=== PATIENT | male | born 1980 ===

== ENCOUNTER 2020-12-09 12:47 | Inpatient (IN) | payer OTHER ==
[2020-12-09] MEDS ORDERED: SODIUM CHLORIDE 0.9% 1000 ML IV SOLN IV ONE ×2 (14:32→22:15)
[2020-12-09] MEDS ORDERED: CLINDAMYCIN 600 MG/50 mL 600 MG/50 ML BAG IV ONE ×2 (14:32→22:15)
[2020-12-09] MEDS ORDERED: ACETAMINOPHEN 500 MG TAB PO ONE ×2 (14:34→22:10)
--- NOTE | 2020-12-09 14:35 | Emergency Department Report ---
Blank Doc - Documentation Documentation: 40-year-old male that presents with right knee pain, swelling and unable to do range of motion. Patient was sent by urgent care for possible septic joint. Patient is febrile with hypotension. Code sepsis initiated. 1- This is a initial triage assessment/medical screening only. Full assessment and work-up will be completed once the patient is in proper hospital gown, ED bed and in a private room setting. This initial assessment/diagnostic orders/clinical plan/ treatment(s) is/are subject to change based on pt's health status, clinical progression and re-assessment by fellow clinical providers in the ED. Further treatment and workup at subsequent clinical providers d iscretion. Patient/guardians urged not to elope from ED as their condition may be serious if not clinically assessed and managed. 2-sepsis protocol initiated 3-supervisor in charge notified of patient to be brought back [facility].
[2020-12-09 14:59] LABS: Basophils # (Auto) 0.1 K/mm3 (0.0-0.1); Basophils % (Auto) 0.5 % (0.0-1.8); Eosinophils # (Auto) 0.1 K/mm3 (0.0-0.4); Eosinophils % (Auto) 0.4 % (0.0-4.3); Hematocrit 44.8 % (35.5-45.6); Hemoglobin 15.7 gm/dl (11.8-15.2); Lymphocytes # (Auto) 1.9 K/mm3 (1.2-5.4); Lymphocytes % (Auto) 12.2 % (13.4-35.0); Mean Corpuscular HGB Conc 35 % (32-34); Mean Corpuscular Volume 91 fl (84-94); Monocytes # (Auto) 1.1 K/mm3 (0.0-0.8); Monocytes % (Auto) 7.3 % (0.0-7.3); Platelet Count 275 K/mm3 (140-440); Red Blood Count 4.93 M/mm3 (3.65-5.03); Red Cell Distribution Width 13.5 % (13.2-15.2)
--- NOTE | 2020-12-09 15:19 | XRay Report ---
CHEST 1 VIEW 12/09/2020 2:09 PM INDICATION / CLINICAL INFORMATION: sepsis. COMPARISON: None available. FINDINGS: SUPPORT DEVICES: None. HEART / MEDIASTINUM: No significant abnormality. LUNGS / PLEURA: No significant pulmonary or pleural abnormality. No pneumothorax. ADDITIONAL FINDINGS: No significant additional findings. IMPRESSION: 1. No acute findings. Signer Name: Hayden Johnston MD Signed: 12/09/2020 3:14 PM Workstation Name: [id number]
--- NOTE | 2020-12-09 15:19 | XRay Report ---
Right knee 3 views INDICATION: Knee pain and swelling FINDINGS: There is patellofemoral degenerative change. No acute fracture dislocation. Small joint eff usion. Signer Name: Hayden Johnston MD Signed: 12/09/2020 3:15 PM Workstation Name: [id number]
[2020-12-09 15:20] LABS: Alanine Aminotransferase 33 units/L (7-56); Albumin 4.3 g/dL (3.9-5); BUN/Creatinine Ratio 18; Blood Urea Nitrogen 16 mg/dL (9-20); Calcium 9.4 mg/dL (8.4-10.2); Hemolysis Index 7
[2020-12-09] MEDS ORDERED: CEFEPIME/NS 2 GM/100 ML 2 GM/100 ML BAG IV ONE (22:13)
[2020-12-09] MEDS ORDERED: VANCOMYCIN/NS 1 GM/250 ML 1 GM/250 ML BAG IV ONE (22:13)
--- NOTE | 2020-12-09 22:19 | Emergency Department Report ---
HPI - General Chief Complaint: Extremity Problem,Nontraumatic Time Seen by Provider: 12/09/20 14:32 - HPI HPI: Room 5 The patient is a 40-year-old male present with a chief complaint of right lower extremity pain. The patient states approximate 4 days ago there was a pimple on his right solis that he squeezed and popped. Since then the patient has de veloped pain swelling and redness of the right knee. Patient has pain so severe limits his ability to ambulate without crutches. Patient is febrile in the ED. Patient gives his pain a score of 10/10 ED Past Medical Hx - Past Medical History Previous Medical History?: No - Surgical History Past Surgical History?: No - Family History Family history: no significant - Social History Smoking Status: Former Smoker (None x3 years) Substance Use Type: None (Denies illicit drug use), Alcohol (Occasional) ED Review of Systems ROS: Stated complaint: RT LEG PAIN Other details as noted in HPI Constitutional: fever Eyes: denies: eye pain ENT: denies: throat pain Respiratory: no symptoms reported Cardiovascular: denies: chest pain Endocrine: no symptoms reported Gastrointestinal: denies: abdominal pain Genitourinary: denies: dysuria Skin: change in color Neurological: denies: headache Physical Exam - Physical Exam Vital Signs: Vital Signs 12/09/20 14:27 Temperature 100.1 F H Pulse Rate 83 Respiratory 22 Rate Blood Pressure 96/67 O2 Sat by Pulse 97 Oximetry Physical Exam: GENERAL: The patient is well-developed well-nourished male lying on stretcher not appearing to be in acute distress. [] HEENT: Normocephalic. Atraumatic. Extraocular motions are intact. Patient has moist mucous membranes. NECK: Supple. Trachea midline CHEST/LUNGS: Clear to auscultation. There is no respiratory distress noted. HEART/CARDIOVASCULAR: Regular. There is no tachycardia. There is no gallop rub or murmur. ABDOMEN: Abdomen is soft, nontender. Patient has normal bowel sounds. There is no abdominal distention. SKIN: There is circumferential erythema to the right lower extremity encomp assing the right knee and right upper solis and calf. There is a nodule in the pretibial region that is likely the portal of infection NEURO: The patient is awake, alert, and oriented. The patient is cooperative. The patient has no focal neurologic deficits. The patient has normal speech. GCS 15 MUSCULOSKELETAL: There is tenderness to palpation of the proximal right calf and distal right thigh ED Course Vital Signs 12/09/20 14:27 Temperature 100.1 F H Pulse Rate 83 Respiratory 22 Rate Blood Pressure 96/67 O2 Sat by Pulse 97 Oximetry - Consultations Consultation #1: 12/09/20 22:24 Ortho paged ED Medical Decision Making - Lab Data Result diagrams: 12/09/20 14:44 12/09/20 14:44 Laboratory Tests 12/09/20 12/09/20 12/09/20 14:44 14:44 14:44 WBC 15.5 H RBC 4.93 Hgb 15.7 H Hct 44.8 MCV 91 MCH 32 MCHC 35 H RDW 13.5 Plt Count 275 Lymph % (Auto) 12.2 L [place] % (Auto) 7.3 Eos % (Auto) 0.4 Baso % (Auto) 0.5 Lymph # (Auto) 1.9 [place] # (Auto) 1.1 H Eos # (Auto) 0.1 Baso # (Auto) 0.1 Seg Neutrophils % 79.6 H Seg Neutrophils # 12.3 H Sodium 135 L Potassium 4.0 Chloride 98.6 Carbon Dioxide 24 Anion Gap 16 BUN 16 Creatinine 0.9 Estimated GFR > 60 BUN/Creatinine Ratio 18 Glucose 106 H Lactic Acid 1.10 Calcium 9.4 Total Bilirubin 0.80 AST 24 ALT 33 Alkaline Phosphatase 78 Total Protein 7.8 Albumin 4.3 Albumin/Globulin Ratio 1.2 12/09/20 17:59 WBC RBC Hgb Hct MCV MCH MCHC RDW Plt Count Lymph % (Auto) [place] % (Auto) Eos % (Auto) Baso % (Auto) Lymph # (Auto) [place] # (Auto) Eos # (Auto) Baso # (Auto) Seg Neutrophils % Seg Neutrophils # Sodium Potassium Chloride Carbon Dioxide Anion Gap BUN Creatinine Estimated GFR BUN/Creatinine Ratio Glucose Lactic Acid 1.10 Calcium Total Bilirubin AST ALT Alkaline Phosphatase Total Protein Albumin Albumin/Globulin Ratio - Differential Diagnosis Cellulitis, sepsis Critical care attestation.: If time is entered above; I have spent that time in minutes in the direct care of this critically ill patient, excluding procedure time. ED Disposition Clinical Impression: Cellulitis of right lower extremity, SIRS (systemic inflammatory response syndrome) Disposition: OP ADMIT IP TO THIS HOSP Is pt being admited?: Yes Does the pt Need Aspirin: No Condition: Fair Time of Disposition: 22:20 (Hospitalist paged (Dr. Welsh))
[2020-12-09] MEDS ORDERED: HYDROmorphone 1 MG/1 ML INJ IV PRN (22:33)
[2020-12-09] MEDS ORDERED: oxyCODONE /ACETAMINOPHEN 5-325MG TAB PO PRN (22:33)
[2020-12-09] MEDS ORDERED: ACETAMINOPHEN 325 MG TAB PO PRN (22:33)
[2020-12-09] MEDS ORDERED: ALBUTEROL 2.5 MG/3 ML NEBU IH PRN (22:33)
[2020-12-09] MEDS ORDERED: ONDANSETRON 4 MG/2 ML INJ IV PRN (22:33)
[2020-12-09] MEDS ORDERED: HYDROmorphone 1 MG/1 ML INJ IV ONE (22:34)
[2020-12-09] MEDS ORDERED: ONDANSETRON 4 MG/2 ML INJ IV ONE (22:34)
--- NOTE | 2020-12-09 22:41 | History and Physical Report ---
History of Present Illness Date of examination: 12/09/20 Date of admission: 12/09/20 Chief complaint: Right lower extremity pain cellulitis History of present illness: 40-year-old male with no significant past medical history was brought to the emergency room because of right lower extremity cellulitis and pain. As per the patient, there was a pimple on his right solis that he squeezed and popped 4 days ago. Since then the patient has developed pain 10/10, swelling and redness of the right knee. Patient has pain so severe limits his ability to ambulate without crutches. Patient is febrile in the ED. X-ray of the knee showed there is patellofemoral degenerative change. No acute fracture dislocation. Small joint effusion. Patient WBC is 15.5 and lactic acid 1.10 Medications and Allergies Allergies Allergy/AdvReac Type Severity Reaction Status Date / Time No Known Allergies Allergy Verified 12/09/20 22:05 Active Meds: Active Medications Acetaminophen (Acetaminophen 325 Mg Tab) 650 mg PO Q4H PRN PRN Reason: Pain MILD(1-3)/Fever >100.5/CHRISTENSEN Cefepime HCl (Cefepime/Ns 2 Gm/100 Ml) 2 gm in 100 mls @ 200 mls/hr IV ONCE ONE; Protocol Stop: 12/09/20 22:42 Vancomycin HCl (Vancomycin/Ns 1 Gm/250 Ml) 1 gm in 250 mls @ 167.007 mls/hr IV ONCE ONE; Protocol Stop: 12/09/20 23:42 Ondansetron HCl (Ondansetron 4 Mg/2 Ml Inj) 4 mg IV Q8H PRN PRN Reason: Nausea And Vomiting Sodium Chloride (Sodium Chloride 0.9% 10 Ml Flush Syringe) 10 ml IV BID JENNIFER Sodium Chloride (Sodium Chloride 0.9% 10 Ml Flush Syringe) 10 ml IV PRN PRN PRN Reason: LINE FLUSH Review of Systems Constitutional: fever Musculoskeletal: redness of joints, other (Right lower extremity cellulitis and pain, swelling) Exam - Constitutional Vitals: Temp Pulse Resp BP Pulse Ox 100.1 F H 83 22 96/67 97 12/09/20 14:27 12/09/20 14:27 12/09/20 14:27 12/09/20 14:27 12/09/20 14:27 General appearance: Present: no acute distress, well-nourished - EENT Eyes: Present: PERRL ENT: hearing intact, clear oral mucosa - Neck Neck: Present: supple, normal ROM - Respiratory Respiratory effort: normal Respiratory: bilateral: CTA - Cardiovascular Heart Sounds: Present: S1 & S2. Absent: rub, click - Extremities Extremities: pulses symmetrical, No edema, abnormal Extremity abnormal: erythema, other (Right lower extremity cellulitis and swelling) Peripheral Pulses: within normal limits - Abdominal General gastrointestinal: Present: soft, non-tender, non-distended, normal bowel sounds Male genitourinary: Present: normal - Integumentary Integumentary: Present: clear, warm, dry - Musculoskeletal Musculoskeletal: gait normal, strength equal bilaterally - Psychiatric Psychiatric: appropriate mood/affect, intact judgment & insight - Neurologic Neurologic: CNII-XII intact, moves all extremities Results - Labs CBC & Chem 7: 12/09/20 14:44 12/09/20 14:44 Labs: Laboratory Last Values WBC 15.5 K/mm3 (4.5-11.0) H 12/09/20 14:44 RBC 4.93 M/mm3 (3.65-5.03) 12/09/20 14:44 Hgb 15.7 gm/dl (11.8-15.2) H 12/09/20 14:44 Hct 44.8 % (35.5-45.6) 12/09/20 14:44 MCV 91 fl (84-94) 12/09/20 14:44 MCH 32 pg (28-32) 12/09/20 14:44 MCHC 35 % (32-34) H 12/09/20 14:44 RDW 13.5 % (13.2-15.2) 12/09/20 14:44 Plt Count 275 K/mm3 (140-440) 12/09/20 14:44 Lymph % (Auto) 12.2 % (13.4-35.0) L 12/09/20 14:44 [place] % (Auto) 7.3 % (0.0-7.3) 12/09/20 14:44 Eos % (Auto) 0.4 % (0.0-4.3) 12/09/20 14:44 Baso % (Auto) 0.5 % (0.0-1.8) 12/09/20 14:44 Lymph # (Auto) 1.9 K/mm3 (1.2-5.4) 12/09/20 14:44 [place] # (Auto) 1.1 K/mm3 (0.0-0.8) H 12/09/20 14:44 Eos # (Auto) 0.1 K/mm3 (0.0-0.4) 12/09/20 14:44 Baso # (Auto) 0.1 K/mm3 (0.0-0.1) 12/09/20 14:44 Seg Neutrophils % 79.6 % (40.0-70.0) H 12/09/20 14:44 Seg Neutrophils # 12.3 K/mm3 (1.8-7.7) H 12/09/20 14:44 Sodium 135 mmol/L (137-145) L 12/09/20 14:44 Potassium 4.0 mmol/L (3.6-5.0) 12/09/20 14:44 Chloride 98.6 mmol/L (98-107) 12/09/20 14:44 Carbon Dioxide 24 mmol/L (22-30) 12/09/20 14:44 Anion Gap 16 mmol/L 12/09/20 14:44 BUN 16 mg/dL (9-20) 12/09/20 14:44 Creatinine 0.9 mg/dL (0.8-1.3) 12/09/20 14:44 Estimated GFR > 60 ml/min 12/09/20 14:44 BUN/Creatinine Ratio 18 % 12/09/20 14:44 Glucose 106 mg/dL (75-100) H 12/09/20 14:44 Lactic Acid 1.10 mmol/L (0.7-2.0) 12/09/20 17:59 Calcium 9.4 mg/dL (8.4-10.2) 12/09/20 14:44 Total Bilirubin 0.80 mg/dL (0.1-1.2) 12/09/20 14:44 AST 24 units/L (5-40) 12/09/20 14:44 ALT 33 units/L (7-56) 12/09/20 14:44 Alkaline Phosphatase 78 units/L (35-129) 12/09/20 14:44 Total Protein 7.8 g/dL (6.3-8.2) 12/09/20 14:44 Albumin 4.3 g/dL (3.9-5) 12/09/20 14:44 Albumin/Globulin Ratio 1.2 % 12/09/20 14:44 Microbiology: Microbiology 12/09/20 14:44 Peripheral/Venous Blood Culture - Preliminary Culture in Progress 12/09/20 14:44 Peripheral/Venous Blood Culture - Preliminary Culture in Progress - Imaging and Cardiology Chest x-ray: report reviewed Assessment and Plan VTE prophylaxis?: Chemical Plan of care discussed with patient/family: Yes - Patient Problems (1) Cellulitis of right lower extremity Status: Acute Plan to address problem: Admit the patient to the [facility]. Regular diet. Vancomycin 1 g IV every 12 hours and Zosyn 4.5 g IV every 8 hours. We do the blood culture wound culture. Will consult wound care evaluation. We also consult orthopedic Dr. Menard to see the patient. Recheck CBC BMP in the morning (2) SIRS (systemic inflammatory response syndrome) Status: Acute Plan to address problem: Vancomycin 1 g IV every 12 hours and Zosyn 4.5 g IV every 8 hours. We do the blood culture wound culture. Will consult wound care evaluation. Recheck CBC BMP in the morning (3) DVT prophylaxis Status: Acute Plan to address problem: Heparin 5000 units subcu every 8 hours for DVT prophylaxis. Pepcid 20 mg p.o. twice daily for GI prophylaxis. Patient is a full code
[2020-12-09] MEDS ORDERED: VANCOMYCIN/NS 1 GM/250 ML 1 GM/250 ML BAG IV SCH (23:00)
[2020-12-09 23:11] LABS: Bilirubin,Urine NEG (Negative); Blood,Urine NEG (Negative); Color,Urine Amber (Yellow); Mucus,Urine 3+ /HPF
[2020-12-09] MEDS: PIPERACIL/TAZOBACTA 4.5/NS 100 4.5 GM/100 ML VIAL IV SCH (23:13)
[2020-12-10 05:33] LABS: Basophils # (Auto) 0.1 K/mm3 (0.0-0.1); Basophils % (Auto) 0.5 % (0.0-1.8); Eosinophils # (Auto) 0.3 K/mm3 (0.0-0.4); Eosinophils % (Auto) 2.4 % (0.0-4.3); Hematocrit 40.7 % (35.5-45.6); Hemoglobin 14.1 gm/dl (11.8-15.2); Lymphocytes # (Auto) 1.4 K/mm3 (1.2-5.4); Lymphocytes % (Auto) 12.4 % (13.4-35.0); Mean Corpuscular HGB Conc 35 % (32-34); Mean Corpuscular Volume 93 fl (84-94); Monocytes # (Auto) 0.7 K/mm3 (0.0-0.8); Monocytes % (Auto) 6.7 % (0.0-7.3); Platelet Count 209 K/mm3 (140-440); Red Blood Count 4.39 M/mm3 (3.65-5.03); Red Cell Distribution Width 13.4 % (13.2-15.2)
[2020-12-10] MEDS: HEPARIN 5,000 UNIT/1 ML VIAL SUB-Q SCH ×3 (05:53→22:12)
[2020-12-10 05:54] LABS: Blood Urea Nitrogen 13 mg/dL (9-20); Calcium 8.3 mg/dL (8.4-10.2); Hemolysis Index 16
[2020-12-10 05:59] LABS: BUN/Creatinine Ratio 19
[2020-12-10] MEDS: PIPERACIL/TAZOBACTA 4.5/NS 100 4.5 GM/100 ML VIAL IV SCH ×3 (07:46→22:11)
--- NOTE | 2020-12-10 09:39 | Progress Note ---
Assessment and Plan Assessment and plan: (1) Cellulitis of right lower extremity Status: Acute Plan to address problem: Admit the patient to the [facility]. Regular diet. Vancomycin 1 g IV every 12 hours and Zosyn 4.5 g IV every 8 hours. We do the blood culture wound culture. Will consult wound care evaluation. We also consult orthopedic Dr. Menard to see the patient. Recheck CBC BMP in the morning (2) sepsis Status: Acute Plan to address problem: Vancomycin 1 g IV every 12 hours and Zosyn 4.5 g IV every 8 hours. We do the blood culture wound culture. Will consult wound care evaluation. Recheck CBC BMP in the morning (3) DVT prophylaxis Status: Acute Plan to address problem: Heparin 5000 units subcu every 8 hours for DVT prophylaxis. Pepcid 20 mg p.o. twice daily for GI prophylaxis. Patient is a full code. 12/10 -Patient is on IV antibiotics, orthopedics consulted. I put MRI of the right knee. Pain control. Based on the MRI result if needed I will consult interventional radiology. History Interval history: Patient was seen and evaluated this morning Patient has right knee and leg swelling, patient has severe pain of the right lower extremity MRI of the lower extremity done Hospitalist Physical - Physical exam Narrative exam: Not in cardiopulmonary distress. The patient appeared well nourished and normally developed. Vital signs as documented. Head exam is unremarkable. No scleral icterus . Neck is without jugular venous distension, thyromegaly, or carotid bruits. Lungs are clear to auscultation. Cardiac exam reveals regular rate and Rhythm. Abdominal exam reveals normal bowel sounds, nontender, no organomegaly. Extremities right knee and solis swelling and tenderness. 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 No focal weakness. - Constitutional Vitals: Temp Pulse Resp BP Pulse Ox 98.4 F 64 26 H 135/64 96 12/10/20 05:15 12/10/20 07:01 12/10/20 07:01 12/10/20 07:01 12/10/20 07:01 General appearance: Present: no acute distress, well-nourished Results - Labs CBC & Chem 7: 12/10/20 04:23 12/10/20 04:23 Labs: Laboratory Last Values WBC 11.1 K/mm3 (4.5-11.0) H 12/10/20 04:23 RBC 4.39 M/mm3 (3.65-5.03) 12/10/20 04:23 Hgb 14.1 gm/dl (11.8-15.2) 12/10/20 04:23 Hct 40.7 % (35.5-45.6) 12/10/20 04:23 MCV 93 fl (84-94) 12/10/20 04:23 MCH 32 pg (28-32) 12/10/20 04:23 MCHC 35 % (32-34) H 12/10/20 04:23 RDW 13.4 % (13.2-15.2) 12/10/20 04:23 Plt Count 209 K/mm3 (140-440) 12/10/20 04:23 Lymph % (Auto) 12.4 % (13.4-35.0) L 12/10/20 04:23 [place] % (Auto) 6.7 % (0.0-7.3) 12/10/20 04:23 Eos % (Auto) 2.4 % (0.0-4.3) 12/10/20 04:23 Baso % (Auto) 0.5 % (0.0-1.8) 12/10/20 04:23 Lymph # (Auto) 1.4 K/mm3 (1.2-5.4) 12/10/20 04:23 [place] # (Auto) 0.7 K/mm3 (0.0-0.8) 12/10/20 04:23 Eos # (Auto) 0.3 K/mm3 (0.0-0.4) 12/10/20 04:23 Baso # (Auto) 0.1 K/mm3 (0.0-0.1) 12/10/20 04:23 Seg Neutrophils % 78.0 % (40.0-70.0) H 12/10/20 04:23 Seg Neutrophils # 8.7 K/mm3 (1.8-7.7) H 12/10/20 04:23 Sodium 136 mmol/L (137-145) L 12/10/20 04:23 Potassium 4.4 mmol/L (3.6-5.0) 12/10/20 04:23 Chloride 103.4 mmol/L (98-107) 12/10/20 04:23 Carbon Dioxide 25 mmol/L (22-30) 12/10/20 04:23 Anion Gap 12 mmol/L 12/10/20 04:23 BUN 13 mg/dL (9-20) 12/10/20 04:23 Creatinine 0.7 mg/dL (0.8-1.3) L 12/10/20 04:23 Estimated GFR > 60 ml/min 12/10/20 04:23 BUN/Creatinine Ratio 19 % 12/10/20 04:23 Glucose 91 mg/dL (75-100) 12/10/20 04:23 Lactic Acid 1.10 mmol/L (0.7-2.0) 12/09/20 17:59 Calcium 8.3 mg/dL (8.4-10.2) L 12/10/20 04:23 Total Bilirubin 0.80 mg/dL (0.1-1.2) 12/09/20 14:44 AST 24 units/L (5-40) 12/09/20 14:44 ALT 33 units/L (7-56) 12/09/20 14:44 Alkaline Phosphatase 78 units/L (35-129) 12/09/20 14:44 Total Protein 7.8 g/dL (6.3-8.2) 12/09/20 14:44 Albumin 4.3 g/dL (3.9-5) 12/09/20 14:44 Albumin/Globulin Ratio 1.2 % 12/09/20 14:44 Urine Color Gianna (Yellow) 12/09/20 22:43 Urine Turbidity Clear (Clear) 12/09/20 22:43 Urine pH 5.0 (5.0-7.0) 12/09/20 22:43 Ur Specific [place] 1.028 (1.003-1.030) 12/09/20 22:43 Urine Protein 30 mg/dl mg/dL (Negative) 12/09/20 22:43 Urine Glucose (UA) Neg mg/dL (Negative) 12/09/20 22:43 Urine Ketones Neg mg/dL (Negative) 12/09/20 22:43 Urine Blood Neg (Negative) 12/09/20 22:43 Urine Nitrite Neg (Negative) 12/09/20 22:43 Urine Bilirubin Neg (Negative) 12/09/20 22:43 Urine Urobilinogen 2.0 mg/dL (<2.0) 12/09/20 22:43 Ur Leukocyte Esterase Neg (Negative) 12/09/20 22:43 Urine WBC (Auto) 4.0 /HPF (0.0-6.0) 12/09/20 22:43 Urine RBC (Auto) 2.0 /HPF (0.0-6.0) 12/09/20 22:43 Urine Mucus 3+ /HPF 12/09/20 22:43 Microbiology: Microbiology 12/09/20 14:44 Peripheral/Venous Blood Culture - Preliminary Culture in Progress 12/09/20 14:44 Peripheral/Venous Blood Culture - Preliminary Culture in Progress Active Medications - Current Medications Current Medications: Generic Name Dose Route Start Last Admin Trade Name Freq PRN Reason Stop Dose Admin Acetaminophen 650 mg 12/09/20 22:33 Acetaminophen 325 Mg Tab PO Q4H PRN Pain MILD(1-3)/Fever >100.5/CHRISTENSEN Albuterol 2.5 mg 12/09/20 22:33 Albuterol 2.5 Mg/3 Ml Nebu IH Q4HRT PRN Shortness Of Breath Famotidine 20 mg 12/10/20 10:00 Famotidine 20 Mg Tab PO BID JENNIFER Heparin Sodium (Porcine) 5,000 unit 12/10/20 06:00 12/10/20 05:53 Heparin 5,000 Unit/1 Ml Vial SUB-Q 5,000 unit Q8HR JENNIFER Administration Hydromorphone HCl 0.5 mg 12/09/20 22:33 Hydromorphone 1 Mg/1 Ml Inj IV Q3H PRN Pain , Severe (7-10) Piperacillin Sod/Tazobactam Sod 4.5 gm in 100 mls @ 200 mls/hr 12/09/20 23:00 12/10/20 07:46 Zosyn/Ns 4.5gm/100ml IV 200 mls/hr Q8H JENNIFER Administration Protocol Vancomycin HCl 1,250 mg/ 275 mls @ 166.667 mls/hr 12/10/20 12:00 Sodium Chloride IV Q12H JENNIFER Ondansetron HCl 4 mg 12/09/20 22:33 Ondansetron 4 Mg/2 Ml Inj IV Q8H PRN Nausea And Vomiting Oxycodone/Acetaminophen 1 tab 12/09/20 22:33 Oxycodone /Acetaminophen 5-325mg Tab PO Q6H PRN Pain, Moderate (4-6) Sodium Chloride 10 ml 12/10/20 10:00 Sodium Chloride 0.9% 10 Ml Flush Syringe IV BID JENNIFER Sodium Chloride 10 ml 12/09/20 22:33 12/10/20 07:48 Sodium Chloride 0.9% 10 Ml Flush Syringe IV 10 ml PRN PRN Administration LINE FLUSH
[2020-12-10] MEDS ORDERED: SODIUM CHLORIDE 0.9% 1000 ML 1,000 ML IV SCH (11:30)
--- NOTE | 2020-12-10 13:08 | Consultation ---
History of Present Illness - HPI Consult date: 12/10/20 Consult reason: joint pain History of present illness: 40 y/o male with c/o right leg pain and swelling for past several days, states began after busting a pimple on the leg...seen in the ED where PE, and labs merissa picious for cellulitis right leg.... Medications and Allergies Allergies Allergy/AdvReac Type Severity Reaction Status Date / Time No Known Allergies Allergy Verified 12/09/20 22:05 Home Medications Medication Instructions Recorded Confirmed Last Taken Type No Known Home Medications [No 12/10/20 12/10/20 Unknown History Reported Home Medications] Active Meds: Active Medications Acetaminophen (Acetaminophen 325 Mg Tab) 650 mg PO Q4H PRN PRN Reason: Pain MILD(1-3)/Fever >100.5/CHRISTENSEN Albuterol (Albuterol 2.5 Mg/3 Ml Nebu) 2.5 mg IH Q4HRT PRN PRN Reason: Shortness Of Breath Famotidine (Famotidine 20 Mg Tab) 20 mg PO BID [facility] Heparin Sodium (Porcine) (Heparin 5,000 Unit/1 Ml Vial) 5,000 unit SUB-Q Q8HR JENNIFER Last Admin: 12/10/20 05:53 Dose: 5,000 unit Documented by: Hydromorphone HCl (Hydromorphone 1 Mg/1 Ml Inj) 0.5 mg IV Q3H PRN PRN Reason: Pain , Severe (7-10) Piperacillin Sod/Tazobactam Sod (Zosyn/Ns 4.5gm/100ml) 4.5 gm in 100 mls @ 200 mls/hr IV Q8H [facility]; Protocol Last Admin: 12/10/20 07:46 Dose: 200 mls/hr Documented by: Vancomycin HCl 1,250 mg/ (Sodium Chloride) 275 mls @ 166.667 mls/hr IV Q12H [facility] Sodium Chloride (Nacl 0.9% 1000 Ml) 1,000 mls @ 25 mls/hr IV DIRECT JENNIFER Ondansetron HCl (Ondansetron 4 Mg/2 Ml Inj) 4 mg IV Q8H PRN PRN Reason: Nausea And Vomiting Oxycodone/Acetaminophen (Oxycodone /Acetaminophen 5-325mg Tab) 1 tab PO Q6H PRN PRN Reason: Pain, Moderate (4-6) Last Admin: 12/10/20 12:39 Dose: 1 tab Documented by: Sodium Chloride (Sodium Chloride 0.9% 10 Ml Flush Syringe) 10 ml IV BID JENNIFER Sodium Chloride (Sodium Chloride 0.9% 10 Ml Flush Syringe) 10 ml IV PRN PRN PRN Reason: LINE FLUSH Last Admin: 12/10/20 07:48 Dose: 10 ml Documented by: Physical Examination - Physical exam Narrative exam: right leg - + erythematous, moderate swelling, passive ROM good, distal n/v intact Eyes: PERRL ENT: Positive: clear oral mucosa Respiratory effort: normal Respiratory: bilateral: CTA Rhythm: regular Heart Sounds: Positive: S1 & S2 General gastrointestinal: Positive: soft, non-tender, non-distended, normal bowel sounds Integumentary: clear, warm, dry Neurologic: Positive: CNII-XII intact, moves all extremities, gait normal. Negative: focal deficits - Cervical Spine Neck pain: none Tenderness with palpation: none Full ROM: yes ROM: flexion: normal ROM: extension: normal ROM: rotation right: normal ROM: rotation left: normal ROM: lateral flexion right: normal ROM: lateral flexion left: normal - Lumbar Spine Back pain: none Tenderness with palpation: none Appearance: normal Full ROM: yes ROM: flexion: normal ROM: extension: normal ROM: rotation right: normal ROM: rotation left: normal ROM: lateral flexion right: normal ROM: lateral flexion left: normal Assessment and Plan cellulitis right leg continue IVAB and observation
[2020-12-10] MEDS: FAMOTIDINE 20 MG TAB PO SCH ×2 (13:24→22:11)
--- NOTE | 2020-12-10 15:03 | Magnetic Resonance Report ---
MRI RIGHT KNEE WITHOUT CONTRAST INDICATION / CLINICAL INFORMATION: Right knee and leg swelling. TECHNIQUE: Multiplanar, multisequence MR images were obtained. No contrast used. COMPARISON: None available. FINDINGS: ACL: No significant abnormality. PCL: No significant abnormality. DISTAL QUADRICEPS TENDON: No significant abnormality. PATELLAR TENDON: No significant abnormality. MEDIAL MENISCUS: There is a vertical tear in the posterior root of the medial meniscus. LATERAL MENISCUS: There is a discoid lateral meniscus without discrete tear. POSTEROLATERAL CORNER: No significant abnormality. MCL: No significant abnormality. LCL: No significant abnormality. DISTAL IT BAND: No significant abnormality. PATELLOFEMORAL ALIGNMENT: No significant abnormality. ARTICULAR CARTILAGE: No significant chondrosis or articular cartilage defect. JOINT SPACE: Small joint effusion. No significant popliteal cyst. No intra-articular bodies. BONES: No significant bone marrow edema. No fracture. No osseous lesion. SOFT TISSUES: There is diffuse nonspecific subcutaneous edema throughout the knee. There is no focal well-defined fluid collection. ADDITIONAL FINDINGS: None. IMPRESSION: 1. Vertical tear in the posterior root of the medial meniscus with a small joint effusion. 2. Diffuse nonspecific subcutaneous edema throughout the knee. 3. 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 Signer Name: Bin Fernandes MD Signed: 12/10/2020 2:58 PM Workstation Name: [id number]
[2020-12-10] MEDS: VANCOMYCIN 1,250 MG in SODIUM CHLORIDE 0.9% 250ML 250 ML IV SCH (15:08)
[2020-12-10] MEDS: HYDROmorphone 1 MG/1 ML INJ IV PRN (20:37)
[2020-12-11] MEDS: VANCOMYCIN 1,250 MG in SODIUM CHLORIDE 0.9% 250ML 250 ML IV SCH ×2 (00:57→12:05)
[2020-12-11] MEDS: oxyCODONE /ACETAMINOPHEN 5-325MG TAB PO PRN (04:27)
[2020-12-11] MEDS: HEPARIN 5,000 UNIT/1 ML VIAL SUB-Q SCH ×3 (06:19→22:24)
[2020-12-11 06:55] LABS: Basophils # (Auto) 0.1 K/mm3 (0.0-0.1); Basophils % (Auto) 0.7 % (0.0-1.8); Eosinophils # (Auto) 0.4 K/mm3 (0.0-0.4); Eosinophils % (Auto) 3.1 % (0.0-4.3); Hematocrit 39.1 % (35.5-45.6); Hemoglobin 13.7 gm/dl (11.8-15.2); Lymphocytes # (Auto) 2.1 K/mm3 (1.2-5.4); Lymphocytes % (Auto) 17.5 % (13.4-35.0); Mean Corpuscular HGB Conc 35 % (32-34); Mean Corpuscular Volume 92 fl (84-94); Monocytes % (Auto) 8.5 % (0.0-7.3); Platelet Count 226 K/mm3 (140-440); Red Blood Count 4.24 M/mm3 (3.65-5.03); Red Cell Distribution Width 13.4 % (13.2-15.2)
[2020-12-11 07:11] LABS: BUN/Creatinine Ratio 14; Blood Urea Nitrogen 11 mg/dL (9-20); Calcium 8.9 mg/dL (8.4-10.2); Hemolysis Index 9
--- NOTE | 2020-12-11 09:07 | Progress Note ---
Assessment and Plan Assessment and plan: (1) Cellulitis of right lower extremity Status: Acute Plan to address problem: Admit the patient to the [facility]. Regular diet. Vancomycin 1 g IV every 12 hours and Zosyn 4.5 g IV every 8 hours. We do the blood culture wound culture. Will consult wound care evaluation. We also consult orthopedic Dr. Menard to see the patient. Recheck CBC BMP in the morning (2) sepsis Status: Acute Plan to address problem: Vancomycin 1 g IV every 12 hours and Zosyn 4.5 g IV every 8 hours. We do the blood culture wound culture. Will consult wound care evaluation. Recheck CBC BMP in the morning (3) DVT prophylaxis Status: Acute Plan to address problem: Heparin 5000 units subcu every 8 hours for DVT prophylaxis. Pepcid 20 mg p.o. twice daily for GI prophylaxis. Patient is a full code. 12/10 -Patient is on IV antibiotics, orthopedics consulted. I put MRI of the right knee. Pain control. Based on the MRI result if needed I will consult interventional radiology. 12/11 -Patient was seen by orthopedics and recommend to continue antibiotics -Patient has MRI yesterday and showed medial meniscus tear, with effusion, diffuse swelling of the joint -Pain control, ID consult History Interval history: Patient was seen and evaluated this morning Patient has right knee and leg swelling, patient has severe pain of the right lower extremity MRI of the lower extremity done Hospitalist Physical - Physical exam Narrative exam: Not in cardiopulmonary distress. The patient appeared well nourished and normally developed. Vital signs as documented. Head exam is unremarkable. No scleral icterus . Neck is without jugular venous distension, thyromegaly, or carotid bruits. Lungs are clear to auscultation. Cardiac exam reveals regular rate and Rhythm. Abdominal exam reveals normal bowel sounds, nontender, no organomegaly. Extremities right knee and solis swelling and tenderness. STICKER HAND: Alert and oriented 3. No focal weakness. - Constitutional Vitals: Temp Pulse Resp BP Pulse Ox 97.8 F 57 L 18 112/61 97 12/11/20 08:01 12/11/20 08:01 12/11/20 08:01 12/11/20 08:01 12/11/20 08:01 General appearance: Present: no acute distress, well-nourished Results - Labs CBC & Chem 7: 12/11/20 04:36 12/11/20 04:36 Labs: Laboratory Last Values WBC 12.1 K/mm3 (4.5-11.0) H 12/11/20 04:36 RBC 4.24 M/mm3 (3.65-5.03) 12/11/20 04:36 Hgb 13.7 gm/dl (11.8-15.2) 12/11/20 04:36 Hct 39.1 % (35.5-45.6) 12/11/20 04:36 MCV 92 fl (84-94) 12/11/20 04:36 MCH 32 pg (28-32) 12/11/20 04:36 MCHC 35 % (32-34) H 12/11/20 04:36 RDW 13.4 % (13.2-15.2) 12/11/20 04:36 Plt Count 226 K/mm3 (140-440) 12/11/20 04:36 Lymph % (Auto) 17.5 % (13.4-35.0) 12/11/20 04:36 [place] % (Auto) 8.5 % (0.0-7.3) H 12/11/20 04:36 Eos % (Auto) 3.1 % (0.0-4.3) 12/11/20 04:36 Baso % (Auto) 0.7 % (0.0-1.8) 12/11/20 04:36 Lymph # (Auto) 2.1 K/mm3 (1.2-5.4) 12/11/20 04:36 [place] # (Auto) 1.0 K/mm3 (0.0-0.8) H 12/11/20 04:36 Eos # (Auto) 0.4 K/mm3 (0.0-0.4) 12/11/20 04:36 Baso # (Auto) 0.1 K/mm3 (0.0-0.1) 12/11/20 04:36 Seg Neutrophils % 70.2 % (40.0-70.0) H 12/11/20 04:36 Seg Neutrophils # 8.5 K/mm3 (1.8-7.7) H 12/11/20 04:36 Sodium 137 mmol/L (137-145) 12/11/20 04:36 Potassium 4.0 mmol/L (3.6-5.0) 12/11/20 04:36 Chloride 103.0 mmol/L (98-107) 12/11/20 04:36 Carbon Dioxide 21 mmol/L (22-30) L 12/11/20 04:36 Anion Gap 17 mmol/L 12/11/20 04:36 BUN 11 mg/dL (9-20) 12/11/20 04:36 Creatinine 0.8 mg/dL (0.8-1.3) 12/11/20 04:36 Estimated GFR > 60 ml/min 12/11/20 04:36 BUN/Creatinine Ratio 14 % 12/11/20 04:36 Glucose 89 mg/dL (75-100) 12/11/20 04:36 Lactic Acid 1.10 mmol/L (0.7-2.0) 12/09/20 17:59 Calcium 8.9 mg/dL (8.4-10.2) 12/11/20 04:36 Total Bilirubin 0.80 mg/dL (0.1-1.2) 12/09/20 14:44 AST 24 units/L (5-40) 12/09/20 14:44 ALT 33 units/L (7-56) 12/09/20 14:44 Alkaline Phosphatase 78 units/L (35-129) 12/09/20 14:44 Total Protein 7.8 g/dL (6.3-8.2) 12/09/20 14:44 Albumin 4.3 g/dL (3.9-5) 12/09/20 14:44 Albumin/Globulin Ratio 1.2 % 12/09/20 14:44 Urine Color Gianna (Yellow) 12/09/20 22:43 Urine Turbidity Clear (Clear) 12/09/20 22:43 Urine pH 5.0 (5.0-7.0) 12/09/20 22:43 Ur Specific [place] 1.028 (1.003-1.030) 12/09/20 22:43 Urine Protein 30 mg/dl mg/dL (Negative) 12/09/20 22:43 Urine Glucose (UA) Neg mg/dL (Negative) 12/09/20 22:43 Urine Ketones Neg mg/dL (Negative) 12/09/20 22:43 Urine Blood Neg (Negative) 12/09/20 22:43 Urine Nitrite Neg (Negative) 12/09/20 22:43 Urine Bilirubin Neg (Negative) 12/09/20 22:43 Urine Urobilinogen 2.0 mg/dL (<2.0) 12/09/20 22:43 Ur Leukocyte Esterase Neg (Negative) 12/09/20 22:43 Urine WBC (Auto) 4.0 /HPF (0.0-6.0) 12/09/20 22:43 Urine RBC (Auto) 2.0 /HPF (0.0-6.0) 12/09/20 22:43 Urine Mucus 3+ /HPF 12/09/20 22:43 Microbiology: Microbiology 12/09/20 14:44 Peripheral/Venous Blood Culture - Preliminary NO GROWTH AFTER 24 HOURS 12/09/20 14:44 Peripheral/Venous Blood Culture - Preliminary NO GROWTH AFTER 24 HOURS Jorgensen/IV: Voiding Method Urinal Active Medications - Current Medications Current Medications: Generic Name Dose Route Start Last Admin Trade Name Freq PRN Reason Stop Dose Admin Acetaminophen 650 mg 12/09/20 22:33 Acetaminophen 325 Mg Tab PO Q4H PRN Pain MILD(1-3)/Fever >100.5/CHRISTENSEN Albuterol 2.5 mg 12/09/20 22:33 Albuterol 2.5 Mg/3 Ml Nebu IH Q4HRT PRN Shortness Of Breath Famotidine 20 mg 12/10/20 10:00 12/10/20 22:11 Famotidine 20 Mg Tab PO 20 mg BID JENNIFER Administration Heparin Sodium (Porcine) 5,000 unit 12/10/20 06:00 12/11/20 06:19 Heparin 5,000 Unit/1 Ml Vial SUB-Q 5,000 unit Q8HR JENNIFER Administration Hydromorphone HCl 1 mg 12/10/20 13:53 12/10/20 20:37 Hydromorphone 1 Mg/1 Ml Inj IV 1 mg Q3H PRN Administration Pain , Severe (7-10) Piperacillin Sod/Tazobactam Sod 4.5 gm in 100 mls @ 200 mls/hr 12/09/20 23:00 12/10/20 22:11 Zosyn/Ns 4.5gm/100ml IV 200 mls/hr Q8H JENNIFER Administration Protocol Vancomycin HCl 1,250 mg/ 275 mls @ 166.667 mls/hr 12/10/20 12:00 12/11/20 00:57 Sodium Chloride IV 166.667 mls/hr Q12H JENNIFER Administration Sodium Chloride 1,000 mls @ 25 mls/hr 12/10/20 11:30 12/10/20 15:09 Nacl 0.9% 1000 Ml IV 25 mls/hr DIRECT JENNIFER Administration Ondansetron HCl 4 mg 12/09/20 22:33 Ondansetron 4 Mg/2 Ml Inj IV Q8H PRN Nausea And Vomiting Oxycodone/Acetaminophen 2 tab 12/10/20 13:54 12/11/20 04:27 Oxycodone /Acetaminophen 5-325mg Tab PO 2 tab Q6H PRN Administration Pain, Moderate (4-6) Sodium Chloride 10 ml 12/10/20 10:00 12/10/20 22:12 Sodium Chloride 0.9% 10 Ml Flush Syringe IV 10 ml BID JENNIFER Administration Sodium Chloride 10 ml 12/09/20 22:33 12/10/20 07:48 Sodium Chloride 0.9% 10 Ml Flush Syringe IV 10 ml PRN PRN Administration LINE FLUSH
[2020-12-11] MEDS: FAMOTIDINE 20 MG TAB PO SCH ×2 (12:19→22:24)
[2020-12-11] MEDS: cefTRIAXone/NS 2 GM/100 ML 2 GM/100 ML BAG IV SCH (14:05)
--- NOTE | 2020-12-11 17:07 | Consultation ---
History of Present Illness - Reason for Consult Consult date: 12/11/20 - History of Present Illness 40-year-old man no known past medical history brought to the hospital complaining of right lower extremity pain. He notes began with a pimple on the right solis which he popped 4 days prior to admission. His pain worsened and he subsequently developed swelling and redness of the right knee. He was unable to ambulate without crutches. Febrile to 1-2.8 with a white count 15.5 on admission. Normal renal function. Blood cultures no growth so far. Imaging personally reviewed: Right leg MRI: Tear of the medial meniscus small joint effusion, subcutaneous edema Review of Systems: Bold if positive, otherwise negative General: fevers, chills, rigors HEENT: visual disturbance, diplopia, eye pain Respiratory: cough, sputum, hemoptysis, shortness of breath Cardiovascular: chest pain, syncope Gastrointestinal: nausea, vomiting, diarrhea, abdominal pain Genitourinary: dysuria, hematuria, flank pain Musculoskeletal: neck pain, back pain, joint pain, edema Neurologic: headaches, seizures Hematologic: easy bruising or bleeding Endocrine: night sweats, acute weight loss Skin: rash, jaundice, redness Psychiatric: suicidal, homicidal ideation Medications and Allergies Allergies Allergy/AdvReac Type Severity Reaction Status Date / Time No Known Allergies Allergy Verified 12/09/20 22:05 Home Medications Medication Instructions Recorded Confirmed Last Taken Type No Known Home Medications [No 12/10/20 12/10/20 Unknown History Reported Home Medications] Active Meds: Active Medications Acetaminophen (Acetaminophen 325 Mg Tab) 650 mg PO Q4H PRN PRN Reason: Pain MILD(1-3)/Fever >100.5/CHRISTENSEN Albuterol (Albuterol 2.5 Mg/3 Ml Nebu) 2.5 mg IH Q4HRT PRN PRN Reason: Shortness Of Breath Famotidine (Famotidine 20 Mg Tab) 20 mg PO BID [facility] Last Admin: 12/11/20 12:19 Dose: 20 mg Documented by: Heparin Sodium (Porcine) (Heparin 5,000 Unit/1 Ml Vial) 5,000 unit SUB-Q Q8HR [facility] Last Admin: 12/11/20 06:19 Dose: 5,000 unit Documented by: Hydromorphone HCl (Hydromorphone 1 Mg/1 Ml Inj) 1 mg IV Q3H PRN PRN Reason: Pain , Severe (7-10) Last Admin: 12/10/20 20:37 Dose: 1 mg Documented by: Vancomycin HCl 1,250 mg/ (Sodium Chloride) 275 mls @ 166.667 mls/hr IV Q12H JENNIFER Last Admin: 12/11/20 12:05 Dose: 166.667 mls/hr Documented by: Sodium Chloride (Nacl 0.9% 1000 Ml) 1,000 mls @ 25 mls/hr IV DIRECT JENNIFER Last Admin: 12/10/20 15:09 Dose: 25 mls/hr Documented by: Ceftriaxone Sodium (Rocephin/Ns 2 Gm/100 Ml) 2 gm in 100 mls @ 200 mls/hr IV Q24H JENNIFER; Protocol Last Admin: 12/11/20 14:05 Dose: 200 mls/hr Documented by: Ondansetron HCl (Ondansetron 4 Mg/2 Ml Inj) 4 mg IV Q8H PRN PRN Reason: Nausea And Vomiting Oxycodone/Acetaminophen (Oxycodone /Acetaminophen 5-325mg Tab) 2 tab PO Q6H PRN PRN Reason: Pain, Moderate (4-6) Last Admin: 12/11/20 04:27 Dose: 2 tab Documented by: Sodium Chloride (Sodium Chloride 0.9% 10 Ml Flush Syringe) 10 ml IV BID JENNIFER Last Admin: 12/11/20 12:20 Dose: 10 ml Documented by: Sodium Chloride (Sodium Chloride 0.9% 10 Ml Flush Syringe) 10 ml IV PRN PRN PRN Reason: LINE FLUSH Last Admin: 12/10/20 07:48 Dose: 10 ml Documented by: Physical Examination - Physical Exam Narrative exam: Physical Exam: Constitutional: Alert, cooperative. No acute distress Head, Ears, Nose: Normocephalic, atraumatic. External ears, nose normal Eyes: Conjunctivae/corneas clear. No icterus. No ptosis. Neck: Supple, no meningeal signs Oral: dentition fair, no thrush Cardiovascular: S1, S2 normal. Respiratory: Good air entry, clear to auscultation bilaterally GI: Soft, non-tender; bowel sounds normal. No peritoneal signs. Musculoskeletal: Right leg with redness, crusted lesion. Skin: No rash or abscess Hem/Lymphatic: No palpable cervical or supraclavicular nodes. No lymphangitis Psych: Mood ok. Affect normal Neurological: Awake, alert, oriented. No gross abnormality - Constitutional Vitals: Vital Signs Temp Pulse Resp BP Pulse Ox 99.7 F H 78 18 133/57 97 12/11/20 11:46 12/11/20 11:46 12/11/20 11:46 12/11/20 11:46 12/11/20 11:46 Temperature -Last 24 Hours Temperature 99.7 F Temperature 97.8 F Temperature 98.2 F Temperature 102.8 F Temperature 100.0 F Temperature 102.8 F Results - Labs CBC & Chem 7: 12/11/20 04:36 12/11/20 04:36 Labs: Abnormal lab results 12/11/20 12/11/20 Range/Units 04:36 04:36 WBC 12.1 H (4.5-11.0) K/mm3 MCHC 35 H (32-34) % [place] % (Auto) 8.5 H (0.0-7.3) % [place] # (Auto) 1.0 H (0.0-0.8) K/mm3 Seg Neutrophils % 70.2 H (40.0-70.0) % Seg Neutrophils # 8.5 H (1.8-7.7) K/mm3 Carbon Dioxide 21 L (22-30) mmol/L Assessment and Plan Cultures: Blood culture no growth so far A/P: 40-year-old man past medical history obesity admitted with right leg cellulitis. #Acute sepsis: Present with fevers and leukocytosis. Secondary right leg cellulitis. #Right leg cellulitis: As a result of popping pimple. Good range of motion, no evidence of septic arthritis on MRI. #Obesity Recs: -Continue vancomycin and ceftriaxone for now -would strongly consider drainage of lesion if possible. Defer to surgery. -Plan to DC on PO antibiotics when improved. Thank you for the consult, we will continue to follow. Robby Albarado MD [facility] ([facility]) O: [phone] F: [phone]
[2020-12-11] MEDS: HYDROmorphone 1 MG/1 ML INJ IV PRN (22:24)
[2020-12-12] MEDS: VANCOMYCIN 1,250 MG in SODIUM CHLORIDE 0.9% 250ML 250 ML IV SCH ×2 (00:57→14:19)
[2020-12-12 06:08] LABS: Basophils # (Auto) 0.1 K/mm3 (0.0-0.1); Basophils % (Auto) 0.7 % (0.0-1.8); Eosinophils # (Auto) 0.5 K/mm3 (0.0-0.4); Eosinophils % (Auto) 5.1 % (0.0-4.3); Hematocrit 37.1 % (35.5-45.6); Hemoglobin 12.7 gm/dl (11.8-15.2); Lymphocytes % (Auto) 18.3 % (13.4-35.0); Mean Corpuscular HGB Conc 34 % (32-34); Mean Corpuscular Volume 91 fl (84-94); Monocytes # (Auto) 0.8 K/mm3 (0.0-0.8); Monocytes % (Auto) 7.8 % (0.0-7.3); Platelet Count 280 K/mm3 (140-440); Red Blood Count 4.06 M/mm3 (3.65-5.03); Red Cell Distribution Width 13.2 % (13.2-15.2)
[2020-12-12 06:21] LABS: BUN/Creatinine Ratio 15; Blood Urea Nitrogen 12 mg/dL (9-20); Calcium 8.7 mg/dL (8.4-10.2); Hemolysis Index 7
[2020-12-12] MEDS: HEPARIN 5,000 UNIT/1 ML VIAL SUB-Q SCH ×3 (08:11→22:29)
[2020-12-12] MEDS: oxyCODONE /ACETAMINOPHEN 5-325MG TAB PO PRN ×2 (08:12→22:37)
--- NOTE | 2020-12-12 09:40 | Progress Note ---
Assessment and Plan Assessment and plan: (1) Cellulitis of right lower extremity Status: Acute Plan to address problem: Admit the patient to the [facility]. Regular diet. Vancomycin 1 g IV every 12 hours and Zosyn 4.5 g IV every 8 hours. We do the blood culture wound culture. Will consult wound care evaluation. We also consult orthopedic Dr. Menard to see the patient. Recheck CBC BMP in the morning (2) sepsis Status: Acute Plan to address problem: Vancomycin 1 g IV every 12 hours and Zosyn 4.5 g IV every 8 hours. We do the blood culture wound culture. Will consult wound care evaluation. Recheck CBC BMP in the morning (3) DVT prophylaxis Status: Acute Plan to address problem: Heparin 5000 units subcu every 8 hours for DVT prophylaxis. Pepcid 20 mg p.o. twice daily for GI prophylaxis. Patient is a full code. 12/10 -Patient is on IV antibiotics, orthopedics consulted. I put MRI of the right knee. Pain control. Based on the MRI result if needed I will consult interventional radiology. 12/11 -Patient was seen by orthopedics and recommend to continue antibiotics -Patient has MRI yesterday and showed medial meniscus tear, with effusion, diffuse swelling of the joint -Pain control, ID consult 12/12 -We will follow with wound care, PT evaluation -Use IV ceftriaxone and vancomycin for now -There is superficial abscess and I do recommend drainage of the abscess. I put a consult for Dr. Garcia. History Interval history: Patient was seen and evaluated this morning Patient has right knee and leg swelling, patient has severe pain of the right lower extremity MRI of the lower extremity done Hospitalist Physical - Physical exam Narrative exam: Not in cardiopulmonary distress. The patient appeared well nourished and normally developed. Vital signs as documented. Head exam is unremarkable. No scleral icterus . Neck is without jugular venous distension, thyromegaly, or carotid bruits. Lungs are clear to auscultation. Cardiac exam reveals regular rate and Rhythm. Abdominal exam reveals normal bowel sounds, nontender, no organomegaly. Extremities right knee and solis swelling and tenderness. SLOT FLOORMAN: Alert and oriented 3. No focal weakness. - Constitutional Vitals: Temp Pulse Resp BP Pulse Ox 99.4 F 72 18 140/64 100 12/12/20 07:55 12/12/20 07:55 12/12/20 07:55 12/12/20 07:55 12/12/20 08:01 General appearance: Present: no acute distress, well-nourished Results - Labs CBC & Chem 7: 12/12/20 05:27 12/12/20 05:27 Labs: Laboratory Last Values WBC 10.7 K/mm3 (4.5-11.0) 12/12/20 05:27 RBC 4.06 M/mm3 (3.65-5.03) 12/12/20 05:27 Hgb 12.7 gm/dl (11.8-15.2) 12/12/20 05:27 Hct 37.1 % (35.5-45.6) 12/12/20 05:27 MCV 91 fl (84-94) 12/12/20 05:27 MCH 31 pg (28-32) 12/12/20 05:27 MCHC 34 % (32-34) 12/12/20 05:27 RDW 13.2 % (13.2-15.2) 12/12/20 05:27 Plt Count 280 K/mm3 (140-440) 12/12/20 05:27 Lymph % (Auto) 18.3 % (13.4-35.0) 12/12/20 05:27 [place] % (Auto) 7.8 % (0.0-7.3) H 12/12/20 05:27 Eos % (Auto) 5.1 % (0.0-4.3) H 12/12/20 05:27 Baso % (Auto) 0.7 % (0.0-1.8) 12/12/20 05:27 Lymph # (Auto) 2.0 K/mm3 (1.2-5.4) 12/12/20 05:27 [place] # (Auto) 0.8 K/mm3 (0.0-0.8) 12/12/20 05:27 Eos # (Auto) 0.5 K/mm3 (0.0-0.4) H 12/12/20 05:27 Baso # (Auto) 0.1 K/mm3 (0.0-0.1) 12/12/20 05:27 Seg Neutrophils % 68.1 % (40.0-70.0) 12/12/20 05:27 Seg Neutrophils # 7.3 K/mm3 (1.8-7.7) 12/12/20 05:27 Sodium 136 mmol/L (137-145) L 12/12/20 05:27 Potassium 4.0 mmol/L (3.6-5.0) 12/12/20 05:27 Chloride 104.6 mmol/L (98-107) 12/12/20 05:27 Carbon Dioxide 23 mmol/L (22-30) 12/12/20 05:27 Anion Gap 12 mmol/L 12/12/20 05:27 BUN 12 mg/dL (9-20) 12/12/20 05:27 Creatinine 0.8 mg/dL (0.8-1.3) 12/12/20 05:27 Estimated GFR > 60 ml/min 12/12/20 05:27 BUN/Creatinine Ratio 15 % 12/12/20 05:27 Glucose 95 mg/dL (75-100) 12/12/20 05:27 Lactic Acid 1.10 mmol/L (0.7-2.0) 12/09/20 17:59 Calcium 8.7 mg/dL (8.4-10.2) 12/12/20 05:27 Total Bilirubin 0.80 mg/dL (0.1-1.2) 12/09/20 14:44 AST 24 units/L (5-40) 12/09/20 14:44 ALT 33 units/L (7-56) 12/09/20 14:44 Alkaline Phosphatase 78 units/L (35-129) 12/09/20 14:44 Total Protein 7.8 g/dL (6.3-8.2) 12/09/20 14:44 Albumin 4.3 g/dL (3.9-5) 12/09/20 14:44 Albumin/Globulin Ratio 1.2 % 12/09/20 14:44 Urine Color [place] (Yellow) 12/09/20 22:43 Urine Turbidity Clear (Clear) 12/09/20 22:43 Urine pH 5.0 (5.0-7.0) 12/09/20 22:43 Ur Specific [place] 1.028 (1.003-1.030) 12/09/20 22:43 Urine Protein 30 mg/dl mg/dL (Negative) 12/09/20 22:43 Urine Glucose (UA) Neg mg/dL (Negative) 08/10/21 22:43 Urine Ketones Neg mg/dL (Negative) 12/09/20 22:43 Urine Blood Neg (Negative) 12/09/20 22:43 Urine Nitrite Neg (Negative) 12/09/20 22:43 Urine Bilirubin Neg (Negative) 12/09/20 22:43 Urine Urobilinogen 2.0 mg/dL (<2.0) 12/09/20 22:43 Ur Leukocyte Esterase Neg (Negative) 12/09/20 22:43 Urine WBC (Auto) 4.0 /HPF (0.0-6.0) 12/09/20 22:43 Urine RBC (Auto) 2.0 /HPF (0.0-6.0) 12/09/20 22:43 Urine Mucus 3+ /HPF 12/09/20 22:43 Microbiology: Microbiology 12/09/20 14:44 Peripheral/Venous Blood Culture - Preliminary NO GROWTH AFTER 48 HOURS 12/09/20 14:44 Peripheral/Venous Blood Culture - Preliminary NO GROWTH AFTER 48 HOURS Jorgensen/IV: Voiding Method Urinal Active Medications - Current Medications Current Medications: Generic Name Dose Route Start Last Admin Trade Name Freq PRN Reason Stop Dose Admin Acetaminophen 650 mg 12/09/20 22:33 12/11/20 17:42 Acetaminophen 325 Mg Tab PO 650 mg Q4H PRN Administration Pain MILD(1-3)/Fever >100.5/CHRISTENSEN Albuterol 2.5 mg 12/09/20 22:33 Albuterol 2.5 Mg/3 Ml Nebu IH Q4HRT PRN Shortness Of Breath Famotidine 20 mg 12/10/20 10:00 12/11/20 22:24 Famotidine 20 Mg Tab PO 20 mg BID JENNIFER Administration Heparin Sodium (Porcine) 5,000 unit 12/10/20 06:00 12/12/20 08:11 Heparin 5,000 Unit/1 Ml Vial SUB-Q 5,000 unit Q8HR JENNIFER Administration Hydromorphone HCl 1 mg 12/10/20 13:53 12/11/20 22:24 Hydromorphone 1 Mg/1 Ml Inj IV 1 mg Q3H PRN Administration Pain , Severe (7-10) Vancomycin HCl 1,250 mg/ 275 mls @ 166.667 mls/hr 12/10/20 12:00 12/12/20 00:57 Sodium Chloride IV 166.667 mls/hr Q12H JENNIFER Administration Sodium Chloride 1,000 mls @ 25 mls/hr 12/10/20 11:30 12/10/20 15:09 Nacl 0.9% 1000 Ml IV 25 mls/hr DIRECT JENNIFER Administration Ceftriaxone Sodium 2 gm in 100 mls @ 200 mls/hr 12/11/20 12:00 12/11/20 14:05 Rocephin/Ns 2 Gm/100 Ml IV 200 mls/hr Q24H JENNIFER Administration Protocol Ondansetron HCl 4 mg 12/09/20 22:33 Ondansetron 4 Mg/2 Ml Inj IV Q8H PRN Nausea And Vomiting Oxycodone/Acetaminophen 2 tab 12/10/20 13:54 12/12/20 08:12 Oxycodone /Acetaminophen 5-325mg Tab PO 2 tab Q6H PRN Administration Pain, Moderate (4-6) Sodium Chloride 10 ml 12/10/20 10:00 12/11/20 22:25 Sodium Chloride 0.9% 10 Ml Flush Syringe IV 10 ml BID JENNIFER Administration Sodium Chloride 10 ml 12/09/20 22:33 12/10/20 07:48 Sodium Chloride 0.9% 10 Ml Flush Syringe IV 10 ml PRN PRN Administration LINE FLUSH
[2020-12-12] MEDS: FAMOTIDINE 20 MG TAB PO SCH ×2 (09:48→22:29)
[2020-12-12] MEDS: cefTRIAXone/NS 2 GM/100 ML 2 GM/100 ML BAG IV SCH (13:19)
--- NOTE | 2020-12-12 15:33 | Progress Note ---
Assessment and Plan Cultures: Blood culture no growth so far A/P: 40-year-old man past medical history obesity admitted with right leg cellulitis. #Acute sepsis: Present with fevers and leukocytosis. Secondary to right leg cellulitis. #Right leg cellulitis: As a result of popping pimple. Good range of motion, no evidence of septic arthritis on MRI. #Obesity Recs: -Continue vancomycin and ceftriaxone for now -would strongly consider drainage of lesion if possible. Defer to surgery. -OK to DC with bactrim DS q12h and keflex 500mg q12h to complete 10 days total. Thank you for the consult, we will sign off. Please call with questions. Robby Albarado MD [facility] ([facility]) O: [phone] F: [phone] Subjective Date of service: 12/12/20 Interval history: Febrile overnight to 100.5, afebrile elevated today. White count returned to normal. Blood cultures remain no growth so far. Objective - Exam Narrative Exam: Physical Exam: Constitutional: Alert, cooperative. No acute distress Head, Ears, Nose: Normocephalic, atraumatic. External ears, nose normal Eyes: Conjunctivae/corneas clear. No icterus. No ptosis. Neck: Supple, no meningeal signs Oral: dentition fair, no thrush Cardiovascular: S1, S2 normal. Respiratory: Good air entry, clear to auscultation bilaterally GI: Soft, non-tender; bowel sounds normal. No peritoneal signs. Musculoskeletal: Right leg with redness, crusted lesion. Skin: No rash or abscess Hem/Lymphatic: No palpable cervical or supraclavicular nodes. No lymphangitis Psych: Mood ok. Affect normal Neurological: Awake, alert, oriented. No gross abnormality - Constitutional Vitals: Vital Signs Temp Pulse Resp BP Pulse Ox 97.4 F L 66 18 115/59 99 12/12/20 12:37 12/12/20 12:37 12/12/20 12:37 12/12/20 12:37 12/12/20 12:37 Temperature -Last 24 Hours Temperature 97.4 F Temperature 99.4 F Temperature 99.3 F Temperature 100.5 F Temperature 101.7 F - Labs CBC & Chem 7: 12/12/20 05:27 12/12/20 05:27 Labs: Abnormal lab results 12/12/20 12/12/20 Range/Units 05:27 05:27 [place] % (Auto) 7.8 H (0.0-7.3) % Eos % (Auto) 5.1 H (0.0-4.3) % Eos # (Auto) 0.5 H (0.0-0.4) K/mm3 Sodium 136 L (137-145) mmol/L
[2020-12-12] MEDS: SODIUM CHLORIDE 0.9% IV SCH (22:26)
[2020-12-12] MEDS: VANCOMYCIN IV SCH (22:26)
[2020-12-13] MEDS: HEPARIN 5,000 UNIT/1 ML VIAL SUB-Q SCH (06:35)
[2020-12-13] MEDS: oxyCODONE /ACETAMINOPHEN 5-325MG TAB PO PRN ×2 (06:45→11:55)
[2020-12-13] MEDS ORDERED: VANCOMYCIN PHARMACY TO DOSE IV SCH (08:00)
[2020-12-13 09:03] VITALS: BP 115/63
[2020-12-13] MEDS: FAMOTIDINE 20 MG TAB PO SCH (09:30)
[2020-12-13] MEDS ORDERED: LIDOCAINE (4%) 40 MG/ML TOPICAL SOLN 50 ML BOTTLE TP STA (09:47)
[2020-12-13] MEDS ORDERED: LIDOCAINE (1%) 10 MG/1 ML VIAL 20 ML MDV INFILTRATI STA (10:38)
[2020-12-13] MEDS: HYDROmorphone 1 MG/1 ML INJ IV PRN (11:10)
--- NOTE | 2020-12-13 12:18 | Consultation ---
History of Present Illness Consult date: 12/13/20 Chief complaint: right leg abscess - History of present illness History of present illness: 40-year-old Cymraes-speaking male with no past medical history who presented to the emergency room because of pain and redness of his right lower leg. The patient was admitted on 12/09/2020. He states that his symptoms were ongoing for 4 days prior to presentation. He states the area started off as a pimple and he saw a medical professional who popped and drained it. He states that after this the redness got worse as well as the pain. He has never had anything like this before. He denies a history of diabetes. He has been febrile during this admission but no fevers for the last 24 hours. Patient states that he is on vacation in [place] from [place]. He states his family is coming to pick him up this weekend and take him back to [place]. Past History Past Medical History: No medical history Past Surgical History: No surgical history Social history: no significant social history Family history: no significant family history Medications and Allergies Allergies Allergy/AdvReac Type Severity Reaction Status Date / Time No Known Allergies Allergy Verified 12/09/20 22:05 Home Medications Medication Instructions Recorded Confirmed Last Taken Type No Known Home Medications [No 12/10/20 12/10/20 Unknown History Reported Home Medications] Active Meds: Active Medications Acetaminophen (Acetaminophen 325 Mg Tab) 650 mg PO Q4H PRN PRN Reason: Pain MILD(1-3)/Fever >100.5/CHRISTENSEN Last Admin: 12/11/20 17:42 Dose: 650 mg Documented by: Albuterol (Albuterol 2.5 Mg/3 Ml [facility]) 2.5 mg IH Q4HRT PRN PRN Reason: Shortness Of Breath Famotidine (Famotidine 20 Mg Tab) 20 mg PO BID [facility] Last Admin: 12/13/20 09:30 Dose: 20 mg Documented by: Heparin Sodium (Porcine) (Heparin 5,000 Unit/1 Ml Vial) 5,000 unit SUB-Q Q8HR [facility] Last Admin: 12/13/20 06:35 Dose: 5,000 unit Documented by: Hydromorphone HCl (Hydromorphone 1 Mg/1 Ml Inj) 1 mg IV Q3H PRN PRN Reason: Pain , Severe (7-10) Last Admin: 12/13/20 11:10 Dose: 1 mg Documented by: Sodium Chloride (Nacl 0.9% 1000 Ml) 1,000 mls @ 25 mls/hr IV DIRECT JENNIFER Last Admin: 12/10/20 15:09 Dose: 25 mls/hr Documented by: Ceftriaxone Sodium (Rocephin/Ns 2 Gm/100 Ml) 2 gm in 100 mls @ 200 mls/hr IV Q24H JENNIFER; Protocol Last Admin: 12/12/20 13:19 Dose: 200 mls/hr Documented by: Vancomycin HCl 2,000 mg/ (Sodium Chloride) 540 mls @ 270 mls/hr IV Q12H JENNIFER Ondansetron HCl (Ondansetron 4 Mg/2 Ml Inj) 4 mg IV Q8H PRN PRN Reason: Nausea And Vomiting Oxycodone/Acetaminophen (Oxycodone /Acetaminophen 5-325mg Tab) 2 tab PO Q6H PRN PRN Reason: Pain, Moderate (4-6) Last Admin: 12/13/20 11:55 Dose: 2 tab Documented by: Sodium Chloride (Sodium Chloride 0.9% 10 Ml Flush Syringe) 10 ml IV BID JENNIFER Last Admin: 12/13/20 09:30 Dose: 10 ml Documented by: Sodium Chloride (Sodium Chloride 0.9% 10 Ml Flush Syringe) 10 ml IV PRN PRN PRN Reason: LINE FLUSH Last Admin: 12/10/20 07:48 Dose: 10 ml Documented by: Review of Systems All systems: negative (10 point ROS performed and negative except for that listed in HPI) Exam Vital Signs Temp Pulse Resp BP Pulse Ox 100.1 F H 83 22 96/67 97 12/09/20 14:27 12/09/20 14:27 12/09/20 14:27 12/09/20 14:27 12/09/20 14:27 Narrative exam: Gen.: Awake, alert, oriented x3. No apparent distress ENT: Trachea midline. No lymphadenopathy. No scleral icterus or conjunctival pallor CV: S1, S2 present Respiratory: No audible wheezes Extremities: Significant erythema, induration, fluctuance of the right lower leg just below the knee extending laterally into the posterior aspect of the leg. There is severe tenderness to palpation. There is a fluid-filled cavity on the anterior portion of the right lower leg just below the knee. Results - Labs 12/12/20 05:27 12/12/20 05:27 - Imaging Additional studies: MRI right leg Assessment and Plan 40-year-old male with 1. Sepsis secondary #2 2. Right leg abscess Plan: 1. Recommend incision and drainage of the right leg abscess. I discussed this with the patient in great detail using the [employer] interpreter [id number]. All questions were answered and patient is agreeable to bedside I&D. Consent obtained. 2. Wound cultures will be sent 3. Continue antibiotics per infectious disease 4. As needed pain control 5. DVT prophylaxis 6. Discussed the patient's social situation in detail. Patient is from [place] and is due back on Tuesday. I explained to the patient that I advise that he stays for 1 additional day to ensure that he is improving and does not require additional procedures. He understands and is agreeable. Discussed with Dr. Benito Thank you for this consultation. Please call with any questions or concerns. Evaluation and treatment of this patient was during the time of the national and state emergency arising from COVID19 coronavirus pandemic. Treatment and procedures performed meet the current and available best practice and guidelines for patient during the COVID pandemic.
[2020-12-13] MEDS: cefTRIAXone/NS 2 GM/100 ML 2 GM/100 ML BAG IV SCH (12:19)
--- NOTE | 2020-12-13 12:27 | Procedure Note ---
Date of procedure: 12/13/20 Pre-op diagnosis: Right leg abscess Post-op diagnosis: same Procedure: Incision and drainage of right leg abscess Findings: Timeout performed. The right lower leg in the area of fluctuance and erythema was prepped with Betadine. Using sterile technique an incision and drainage of the abscess was performed. There were 2 separate areas that appeared fluctuant one on the anterior portion of the right lower leg just distal to the knee and one on the lateral aspect of the knee. Local anesthetic was infiltrated into the skin at both intended incision sites. First a inverted T incision was made using an 11 blade in the area of fluctuance anterior RLE just distal to the knee, in the area of the fluid-filled blister. After making the incision there was drainage of purulent fluid. The area was probed with a cotton tip paramjit licator and the abscess cavity was entered. Wound cultures were obtained. A copious amount of purulent and bloody fluid was evacuated through this incision. A 1 cm incision was made in the area of fluctuance just lateral to the knee. There is no drainage from this area. After all purulent fluid was evacuated the wound was irrigated with saline. Hemostasis was carefully ensured. The anterior right lower leg incision was packed open with 1 piece of Mesalt. The leg was cleansed and both incisions were covered with 4 x 4 gauze and wrapped with Kerlix. The patient tolerated the procedure well. He was premedicated with Dilaudid 1 mg IV prior to the start of the procedure. All sharps were disposed of appropriately. Anesthesia: local Surgeon: MICHELE DOUGLASS Estimated blood loss: minimal Pathology: list (wound cultures) Specimen disposition: to lab Condition: stable Disposition: no change
--- NOTE | 2020-12-13 12:32 | Progress Note ---
Assessment and Plan Assessment and plan: (1) Cellulitis of right lower extremity Status: Acute Plan to address problem: Admit the patient to the [facility]. Regular diet. Vancomycin 1 g IV every 12 hours and Zosyn 4.5 g IV every 8 hours. We do the blood culture wound culture. Will consult wound care evaluation. We also consult orthopedic Dr. Menard to see the patient. Recheck CBC BMP in the morning (2) sepsis Status: Acute Plan to address problem: Vancomycin 1 g IV every 12 hours and Zosyn 4.5 g IV every 8 hours. We do the blood culture wound culture. Will consult wound care evaluation. Recheck CBC BMP in the morning (3) DVT prophylaxis Status: Acute Plan to address problem: Heparin 5000 units subcu every 8 hours for DVT prophylaxis. Pepcid 20 mg p.o. twice daily for GI prophylaxis. Patient is a full code. 12/10 -Patient is on IV antibiotics, orthopedics consulted. I put MRI of the right knee. Pain control. Based on the MRI result if needed I will consult interventional radiology. 12/11 -Patient was seen by orthopedics and recommend to continue antibiotics -Patient has MRI yesterday and showed medial meniscus tear, with effusion, diffuse swelling of the joint -Pain control, ID consult 12/12 -We will follow with wound care, PT evaluation -Use IV ceftriaxone and vancomycin for now -There is superficial abscess and I do recommend drainage of the abscess. I put a consult for Dr. Garcia. 12/13 -Patient had incision and debridement this morning, Dr. Garcia drained a lot of abscess, she will reevaluate the patient tomorrow. Continue with IV antibiotics. History Interval history: Patient was seen and evaluated this morning Patient has right knee and leg swelling, patient has severe pain of the right lower extremity Patient had incision and debridement of his right leg today. Hospitalist Physical - Physical exam Narrative exam: Not in cardiopulmonary distress. The patient appeared well nourished and normally developed. Vital signs as documented. Head exam is unremarkable. No scleral icterus . Neck is without jugular venous distension, thyromegaly, or carotid bruits. Lungs are clear to auscultation. Cardiac exam reveals regular rate and Rhythm. Abdominal exam reveals normal bowel sounds, nontender, no organomegaly. Extremities right knee and solis swelling and tenderness. 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 No focal weakness. - Constitutional Vitals: Temp Pulse Resp BP Pulse Ox 98.2 F 61 18 115/63 95 12/13/20 09:01 12/13/20 09:01 12/13/20 09:01 12/13/20 09:01 12/13/20 09:01 General appearance: Present: no acute distress, well-nourished Results - Labs CBC & Chem 7: 12/12/20 05:27 12/12/20 05:27 Labs: Laboratory Last Values WBC 10.7 K/mm3 (4.5-11.0) 12/12/20 05:27 RBC 4.06 M/mm3 (3.65-5.03) 12/12/20 05:27 Hgb 12.7 gm/dl (11.8-15.2) 12/12/20 05:27 Hct 37.1 % (35.5-45.6) 12/12/20 05:27 MCV 91 fl (84-94) 12/12/20 05:27 MCH 31 pg (28-32) 12/12/20 05:27 MCHC 34 % (32-34) 12/12/20 05:27 RDW 13.2 % (13.2-15.2) 12/12/20 05:27 Plt Count 280 K/mm3 (140-440) 12/12/20 05:27 Lymph % (Auto) 18.3 % (13.4-35.0) 12/12/20 05:27 Wise % (Auto) 7.8 % (0.0-7.3) H 12/12/20 05:27 Eos % (Auto) 5.1 % (0.0-4.3) H 12/12/20 05:27 Baso % (Auto) 0.7 % (0.0-1.8) 12/12/20 05:27 Lymph # (Auto) 2.0 K/mm3 (1.2-5.4) 12/12/20 05:27 Wise # (Auto) 0.8 K/mm3 (0.0-0.8) 12/12/20 05:27 Eos # (Auto) 0.5 K/mm3 (0.0-0.4) H 12/12/20 05:27 Baso # (Auto) 0.1 K/mm3 (0.0-0.1) 12/12/20 05:27 Seg Neutrophils % 68.1 % (40.0-70.0) 12/12/20 05:27 Seg Neutrophils # 7.3 K/mm3 (1.8-7.7) 12/12/20 05:27 Sodium 136 mmol/L (137-145) L 12/12/20 05:27 Potassium 4.0 mmol/L (3.6-5.0) 12/12/20 05:27 Chloride 104.6 mmol/L (98-107) 12/12/20 05:27 Carbon Dioxide 23 mmol/L (22-30) 12/12/20 05:27 Anion Gap 12 mmol/L 12/12/20 05:27 BUN 12 mg/dL (9-20) 12/12/20 05:27 Creatinine 0.8 mg/dL (0.8-1.3) 12/12/20 05:27 Estimated GFR > 60 ml/min 12/12/20 05:27 BUN/Creatinine Ratio 15 % 12/12/20 05:27 Glucose 95 mg/dL (75-100) 12/12/20 05:27 Lactic Acid 1.10 mmol/L (0.7-2.0) 12/09/20 17:59 Calcium 8.7 mg/dL (8.4-10.2) 12/12/20 05:27 Total Bilirubin 0.80 mg/dL (0.1-1.2) 12/09/20 14:44 AST 24 units/L (5-40) 12/09/20 14:44 ALT 33 units/L (7-56) 12/09/20 14:44 Alkaline Phosphatase 78 units/L (35-129) 12/09/20 14:44 Total Protein 7.8 g/dL (6.3-8.2) 12/09/20 14:44 Albumin 4.3 g/dL (3.9-5) 12/09/20 14:44 Albumin/Globulin Ratio 1.2 % 12/09/20 14:44 Urine Color Gianna (Yellow) 12/09/20 22:43 Urine Turbidity Clear (Clear) 12/09/20 22:43 Urine pH 5.0 (5.0-7.0) 12/09/20 22:43 Ur Specific [place] 1.028 (1.003-1.030) 12/09/20 22:43 Urine Protein 30 mg/dl mg/dL (Negative) 12/09/20 22:43 Urine Glucose (UA) Neg mg/dL (Negative) 12/09/20 22:43 Urine Ketones Neg mg/dL (Negative) 12/09/20 22:43 Urine Blood Neg (Negative) 12/09/20 22:43 Urine Nitrite Neg (Negative) 12/09/20 22:43 Urine Bilirubin Neg (Negative) 12/09/20 22:43 Urine Urobilinogen 2.0 mg/dL (<2.0) 12/09/20 22:43 Ur Leukocyte Esterase Neg (Negative) 12/09/20 22:43 Urine WBC (Auto) 4.0 /HPF (0.0-6.0) 12/09/20 22:43 Urine RBC (Auto) 2.0 /HPF (0.0-6.0) 12/09/20 22:43 Urine Mucus 3+ /HPF 12/09/20 22:43 Vancomycin Trough 6.3 ug/mL (5.0-20.0) 12/12/20 14:58 Microbiology: Microbiology 12/09/20 14:44 Peripheral/Venous Blood Culture - Preliminary NO GROWTH AFTER 72 HOURS 12/09/20 14:44 Peripheral/Venous Blood Culture - Preliminary NO GROWTH AFTER 72 HOURS Jorgensen/IV: Voiding Method Urinal Active Medications - Current Medications Current Medications: Generic Name Dose Route Start Last Admin Trade Name Freq PRN Reason Stop Dose Admin Acetaminophen 650 mg 12/09/20 22:33 12/11/20 17:42 Acetaminophen 325 Mg Tab PO 650 mg Q4H PRN Administration Pain MILD(1-3)/Fever >100.5/CHRISTENSEN Albuterol 2.5 mg 12/09/20 22:33 Albuterol 2.5 Mg/3 Ml Nebu IH Q4HRT PRN Shortness Of Breath Famotidine 20 mg 12/10/20 10:00 12/13/20 09:30 Famotidine 20 Mg Tab PO 20 mg BID JENNIFER Administration Heparin Sodium (Porcine) 5,000 unit 12/10/20 06:00 12/13/20 06:35 Heparin 5,000 Unit/1 Ml Vial SUB-Q 5,000 unit Q8HR JENNIFER Administration Hydromorphone HCl 1 mg 12/10/20 13:53 12/13/20 11:10 Hydromorphone 1 Mg/1 Ml Inj IV 1 mg Q3H PRN Administration Pain , Severe (7-10) Sodium Chloride 1,000 mls @ 25 mls/hr 12/10/20 11:30 12/10/20 15:09 Nacl 0.9% 1000 Ml IV 25 mls/hr DIRECT JENNIFER Administration Ceftriaxone Sodium 2 gm in 100 mls @ 200 mls/hr 12/11/20 12:00 12/13/20 12:19 Rocephin/Ns 2 Gm/100 Ml IV 200 mls/hr Q24H JENNIFER Administration Protocol Vancomycin HCl 2,000 mg/ 540 mls @ 270 mls/hr 12/13/20 18:00 Sodium Chloride IV Q12H JENNIFER Ondansetron HCl 4 mg 12/09/20 22:33 Ondansetron 4 Mg/2 Ml Inj IV Q8H PRN Nausea And Vomiting Oxycodone/Acetaminophen 2 tab 12/10/20 13:54 12/13/20 11:55 Oxycodone /Acetaminophen 5-325mg Tab PO 2 tab Q6H PRN Administration Pain, Moderate (4-6) Sodium Chloride 10 ml 12/10/20 10:00 12/13/20 09:30 Sodium Chloride 0.9% 10 Ml Flush Syringe IV 10 ml BID JENNIFER Administration Sodium Chloride 10 ml 12/09/20 22:33 12/10/20 07:48 Sodium Chloride 0.9% 10 Ml Flush Syringe IV 10 ml PRN PRN Administration LINE FLUSH
[2020-12-13] MEDS: VANCOMYCIN IV SCH (12:55)
[2020-12-13] MEDS: SODIUM CHLORIDE 0.9% IV SCH (12:55)
[2020-12-13] MEDS ORDERED: VANCOMYCIN IV SCH (18:00)
[2020-12-13] MEDS ORDERED: SODIUM CHLORIDE 0.9% IV SCH (18:00)
--- NOTE | 2020-12-13 18:32 | Discharge Summary ---
Providers - Providers Date of Admission: 12/11/20 13:22 Date of discharge: 12/13/20 Attending physician: JASMYNE BAEZA MD 12/09/20 22:23 Consult to Physician [CONS] Urgent Comment: Consulting Provider: JUAN MENARD Physician Instructions: Reason For Exam: Right lower extremity cellulitis 12/09/20 22:42 Consult to Wound/ET Nurse [CONS] Routine Reason For Exam: wound eval 12/11/20 09:08 Consult to Physician [CONS] Routine Comment: Consulting Provider: LAURA REMY Physician Instructions: Reason For Exam: Cellulitis, joint pain and swelling 12/12/20 09:40 Physical Therapy Evaluation and Treat [CONS] Routine Comment: Reason For Exam: evaluate and treat 12/12/20 15:38 Consult to Physician [CONS] Routine Comment: Consulting Provider: MICHELE DOUGLASS Physician Instructions: Reason For Exam: right leg abscess, cellulitis Primary care physician: LAUNDRY SUPERINTENDENT Hospitalization Reason for admission: Abscess in the right leg Condition: Fair Pertinent studies: MRI right leg Hospital course: History of present illness: 40-year-old male with no significant past medical history was brought to the emergency room because of right lower extremity cellulitis and pain. As per the patient, there was a pimple on his right solis that he squeezed and popped 4 days ago. Since then the patient has developed pain 10/10, swelling and redness of the right knee. Patient has pain so severe limits his ability to ambulate without crutches. Patient is febrile in the ED. X-ray of the knee showed there is patellofemoral degenerative change. No acute fracture dislocation. Small joint effusion. Patient WBC is 15.5 and lactic acid 1.10. Hospital Course (1) Cellulitis of right lower extremity Status: Acute Plan to address problem: Admit the patient to the [facility]. Regular diet. Vancomycin 1 g IV every 12 hours and Zosyn 4.5 g IV every 8 hours. We do the blood culture wound culture. Will consult wound care evaluation. We also consult orthopedic Dr. Menard to see the patient. Recheck CBC BMP in the morning (2) sepsis Status: Acute Plan to address problem: Vancomycin 1 g IV every 12 hours and Zosyn 4.5 g IV every 8 hours. We do the blood culture wound culture. Will consult wound care evaluation. Recheck CBC BMP in the morning (3) DVT prophylaxis Status: Acute Plan to address problem: Heparin 5000 units subcu every 8 hours for DVT prophylaxis. Pepcid 20 mg p.o. twice daily for GI prophylaxis. Patient is a full code. 12/10 -Patient is on IV antibiotics, orthopedics consulted. I put MRI of the right knee. Pain control. Based on the MRI result if needed I will consult intervent ional radiology. 12/11 -Patient was seen by orthopedics and recommend to continue antibiotics -Patient has MRI yesterday and showed medial meniscus tear, with effusion, diffuse swelling of the joint -Pain control, ID consult 12/12 -We will follow with wound care, PT evaluation -Use IV ceftriaxone and vancomycin for now -There is superficial abscess and I do recommend drainage of the abscess. I put a consult for Dr. Douglass. 12/13 -Patient had incision and debridement this morning, Dr. Douglass drained a lot of abscess, she will reevaluate the patient tomorrow. Continue with IV antibiotics. I have explained the management plan that he need to stay one more day to make sure he doesn't need another drainage, that was explained by Dr Douglass and patient agreed to stay but the patient left AMA. Patient advised to have follow up with a physician. The risk of progression was explained to him he understood and left. Disposition: LEFT AGAINST MEDICAL ADVICE Final Discharge Diagnosis (Prints w/discharge instructions): Right leg abscess. celluiitis of the right leg Time spent for discharge: 35 minutes - Discharge Diagnoses (1) Sepsis Status: Acute Qualifiers: Sepsis type: sepsis due to unspecified organism (2) Abscess of right leg Status: Acute (3) Cellulitis of right lower extremity Status: Acute Core Measure Documentation - Palliative Care Palliative Care/ Comfort Measures: Not Applicable - Core Measures Any of the following diagnoses?: none Exam - Physical Exam Narrative exam: Not in cardiopulmonary distress. The patient appeared well nourished and normally developed. Vital signs as documented. Head exam is unremarkable. No scleral icterus . Neck is without jugular venous distension, thyromegaly, or carotid bruits. Lungs are clear to auscultation. Cardiac exam reveals regular rate and Rhythm. Abdominal exam reveals normal bowel sounds, nontender, no organomegaly. Extremities right knee and solis swelling and tenderness. s/p I/D. 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 No focal weakness. - Constitutional Vitals: Temp Pulse Resp BP Pulse Ox 98.2 F 61 18 115/63 99 12/13/20 09:01 12/13/20 09:01 12/13/20 09:01 12/13/20 09:01 12/13/20 10:00 Plan Activity: no restrictions Weight Bearing Status: Weight Bear as Tolerated Follow up with: PRIMARY CARE, [Primary Care Provider] - 7 Days Forms: AMA Form
== END 2020-12-13 15:00 | disposition left against medical advice (07) | DRG 854 ==
LOC: ED 12:47 → 3A 22:23 → 4A 12-10 08:45 → OBSVTOIN 12-11 13:22
PROVIDERS: ADMIT Hospitalist; ATTEND Internal Medicine
PROC: 0J9N0ZZ Drainage of Right Lower Leg Subcutaneous Tissue and Fascia, Open Approach (ICD-10-PCS; principal; 2020-12-13)
DX: A41.9 Sepsis, unspecified organism (principal); L03.115 Cellulitis of right lower limb; L02.415 Cutaneous abscess of right lower limb; E66.9 Obesity, unspecified; Z68.32 Body mass index [BMI] 32.0-32.9, adult; Z87.891 Personal history of nicotine dependence; Z53.29 Procedure and treatment not carried out because of patient's decision for other reasons
CPT/HCPCS: 36415; 71045; 73721; 80048; 80053; 80202; 81001; 82140; 85025; 87040; 87076; 87116; 87186; G0378; J0692; J0696; J1170; J1644; J2405; J2543; J3370; J7030; J7050